=== PATIENT | female | born 1970 | race Caucasian/White ===

== ENCOUNTER 2022-08-02 10:30 | Emergency (ER) | payer SELFPAY ==
[~2022-08-02] VITALS: Ht 160 cm; Wt 61.4 kg
[2022-08-02 10:35] VITALS: BP 133/87; TEMP 98
[2022-08-02] MEDS ORDERED: AMOXICILLIN 8751 TAB PO (11:06)
[2022-08-02 11:29] VITALS: PULSE 96
== END 2022-08-02 11:24 | disposition home or self-care (01) ==
LOC: COL.ER 10:30
DX: K05.10 Chronic gingivitis, plaque induced (principal); Z87.891 Personal history of nicotine dependence; Z28.310 Unvaccinated for COVID-19